=== PATIENT | male | born 1945 | race Caucasian/White ===

== ENCOUNTER 2024-11-22 11:08 | Outpatient (CLI) | payer MEDICARE, OTHER, SELFPAY ==
--- NOTE | 2024-11-22 13:13 | W.ANESCHARGE ---
Anesthesia Charges Start Date/Time Anesthesia Start Date: 11/22/24 Anesthesia Start Time: 11:55 Stop Date/Time Anesthesia Stop Date: 11/22/24 Anesthesia Stop Time: 13:15 Summary Extremes of Age - Over 70 or under 1: YARDER BOSS Coding CPT Codes CPT Codes: ANETarik LWR INTST SCR COLSC - 83740 ([id number]) P2 - PATIENT W/MILD SYST DISEASE, QX - YARDER BOSS SVC W/ MD MED DIRECTION, QK - CIVIL LABORATORY TECHNICIAN 2-4 CNCRNT ANES PROC Additional Codes: Summary - Extremes of Age - Over 70 or under 1: YARDER BOSS ([id number])
--- NOTE | 2024-11-22 13:20 | W.ANESCHARGE ---
Anesthesia Charges Start Date/Time Anesthesia Start Date: 11/22/24 Anesthesia Start Time: 11:55 Stop Date/Time Anesthesia Stop Date: 11/22/24 Anesthesia Stop Time: 13:15 Summary Extremes of Age - Over 70 or under 1: MDA Coding CPT Codes CPT Codes: ANES LWR INTST SCR COLSC - 85553 ([id number]) QK - BOLOGNA LACER 2-4 CNCRNT ANES PROC, P2 - PATIENT W/MILD SYST DISEASE, QX - TORNADO CHASER SVC W/ MD MED DIRECTION Additional Codes: Summary - Extremes of Age - Over 70 or under 1: MDA ([id number])
== END 2024-11-22 11:09 | disposition home or self-care (01) ==
LOC: OP CLINIC 11:10
PROVIDERS: PCP Nurse Practitioner Family; Visit Provider Surgery
DX: Z12.11 Encounter for screening for malignant neoplasm of colon (principal); Z86.0100 Personal history of colon polyps, unspecified
CPT/HCPCS: 00812; 45378; 99100; J2704

== ENCOUNTER 2024-11-24 10:58 | Outpatient (CLI) | payer MEDICARE, OTHER, SELFPAY ==
--- NOTE | 2024-11-24 11:15 | CRLHL7_ITS ---
For Patients: As a result of the Century Cures Act, medical imaging exams and procedure reports are released immediately into your electronic medical record. You may view this report before your referring provider. If you have questions, please contact your health care provider. Indication: Palpable lump Technique: Targeted grayscale and color Doppler ultrasound of the right lateral lower abdomen/back Comparison: None Findings: Heterogeneous slightly vascular solid mass in the right lateral lower flank subcutaneous tissues measuring 6.4 x 4.9 x 12.3 cm. A denser more heterogeneous area is noted within measuring 6.4 x 3.7 x 6.9 cm. Impression: Heterogeneous solid slightly vascular mass in the right lateral flank subcutaneous tissue measuring up to 12.3 cm is concerning for malignancy. Tissue sampling is recommended Dictated by Amelia Tello MD @ 11/25/2024 3:25:53 PM (Electronically Signed)
== END 2024-11-24 10:59 | disposition home or self-care (01) ==
PROVIDERS: PCP Nurse Practitioner Family; Visit Provider Nurse Practitioner Family
DX: R22.2 Localized swelling, mass and lump, trunk (principal)
CPT/HCPCS: 76705

== ENCOUNTER 2024-12-21 12:33 | Outpatient (CLI) | payer MEDICARE, OTHER, SELFPAY ==
--- NOTE | 2024-12-21 13:00 | CRLHL7_ITS ---
For Patients: As a result of the Century Cures Act, medical imaging exams and procedure reports are released immediately into your electronic medical record. You may view this report before your referring provider. If you have questions, please contact your health care provider. Indication: LOCALIZED SWELLING, MASS AND LUMP Technique: CT Abdomen/Pelvis W/ 126CC ISOVUE 370 intravenous Please note that all CT scans at this facility use dose modulation, iterative reconstruction, and/or weight-based dosing when appropriate to reduce radiation dose to as low as reasonably achievable. Comparison: Ultrasound 11/24/2024 Findings: There is a circumscribed primarily fat density mass within the right flank/right gluteal subcutaneous tissues, corresponding to the area of clinical concern. This measures approximately 5.4 x 9.4 x 4.9 cm in transverse, anterior-posterior and craniocaudad dimensions, respectively. There is a portion of this mass which has peripheral soft tissue density with associated dystrophic calcification. No fluid collection. No involvement of the underlying musculature. Calcified nodule within the right lung base, benign, measuring 7 millimeters. No hiatal hernia. Sub cm cyst within the posterior segment of the right hepatic lobe. Additional sub cm cyst within the dome of the liver. Spleen is normal. Adrenal glands are unremarkable. Simple cyst arises from the anterior right kidney measuring 1.6 cm. Pancreas is normal. Atherosclerotic changes. Normal gallbladder. No aneurism. Bladder normal. Unremarkable prostate. Appendix normal. No bowel obstruction or free air. No free fluid. No adenopathy. Degenerative changes both hips. Degenerative disc disease. No fracture or intrinsic osseous lesion. No abdominal wall hernia. Impression: Circumscribed somewhat mixed soft tissue mass within the right flank/right gluteal subcutaneous tissues measuring approximally 5.4 x 9.4 x 4.9 cm. No significant internal vascularity. 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 Please note that all CT scans at this facility use dose modulation, iterative reconstruction, and/or weight-based dosing when appropriate to reduce radiation dose to as low as reasonably achievable. Dictated by Emre Wolfe MD @ 12/21/2024 2:35:33 PM (Electronically Signed)
[2024-12-21 13:06] LABS: Estimated Glomerular Filt Rate 77 ml/min
== END 2024-12-21 12:34 | disposition home or self-care (01) ==
PROVIDERS: PCP Nurse Practitioner Family; Visit Provider Surgery
DX: R22.2 Localized swelling, mass and lump, trunk (principal)
CPT/HCPCS: 36415; 74177; 82565; Q9967

== ENCOUNTER 2025-01-19 06:07 | Day surgery (SDC) | payer MEDICARE, OTHER, SELFPAY ==
[2025-01-19 06:30] VITALS: BP 171/93; PULSE 66; RESP 16; TEMP 36.6; O2SAT 97; BMI 36.3
[2025-01-19] MEDS: LACTATED RINGERS 500 ML 500 ML 100 ML IV (06:30)
[2025-01-19] MEDS: SODIUM CHLORIDE 0.9 % (FLUSH) 10 ML SYRINGE IVF (06:33)
--- NOTE | 2025-01-19 07:29 | W.PM.H&PU ---
History & Physical Update History & Physical Update H&P Reviewed and patient assessed: No changes noted
[2025-01-19] MEDS: CEFAZOLIN 1 GM inj IVP (07:37)
[2025-01-19] MEDS: BUPIVACAINE 0.25% 30 ML 4 ML INJECTION (07:46)
[2025-01-19] MEDS: LIDOCAINE 1% MDV 4 ML INJECTION (07:46)
--- NOTE | 2025-01-19 07:47 | P.ANES_ITS ---
Anesthesia Charges Start Date/Time Anesthesia Start Date: 01/19/25 Anesthesia Start Time: 07:30 Stop Date/Time Anesthesia Stop Date: 01/19/25 Anesthesia Stop Time: 08:23 Summary Extremes of Age - Over 70 or under 1: MDA Coding CPT Codes CPT Codes: ANESTH SKIN EXT/PER/ATRUNK - 32768 ([id number]) QK - HEMATOLOGY NURSE EDUCATOR 2-4 CNCRNT ANES PROC, QX - FARMWORKER GENERAL SVC W/ MD MED DIRECTION, P2 - PATIENT W/MILD SYST DISEASE Additional Codes: Summary - Extremes of Age - Over 70 or under 1: MDA ([id number])
[2025-01-19 08:20] VITALS: BP 135/74; PULSE 53; RESP 16; TEMP 37.1; O2SAT 94
--- NOTE | 2025-01-19 08:22 | P.ANES_ITS ---
Anesthesia Charges Start Date/Time Anesthesia Start Date: 01/19/25 Anesthesia Start Time: 07:30 Stop Date/Time Anesthesia Stop Date: 01/19/25 Anesthesia Stop Time: 08:23 Coding CPT Codes CPT Codes: ANESTH SKIN EXT/PER/ATRUNK - 98311 ([id number]) P2 - PATIENT W/MILD SYST DISEASE, QK - CUSTOM DESIGNER 2-4 CNCRNT ANES PROC, QX - DENTAL CERAMIST ASSISTANT SVC W/ MD MED DIRECTION
--- NOTE | 2025-01-19 08:22 | W.ANESCHARGE ---
Anesthesia Charges Start Date/Time Anesthesia Start Date: 01/19/25 Anesthesia Start Time: 07:30 Stop Date/Time Anesthesia Stop Date: 01/19/25 Anesthesia Stop Time: 08:23 Coding CPT Codes CPT Codes: ANESTH SKIN EXT/PER/ATRUNK - 00463 ([id number]) P2 - PATIENT W/MILD SYST DISEASE, QK - MORTGAGE FUNDER 2-4 CNCRNT ANES PROC, QX - HASHER OPERATOR SVC W/ MD MED DIRECTION
[2025-01-19 08:30] VITALS: BP 129/82; PULSE 53; RESP 16; O2SAT 96
--- NOTE | 2025-01-19 08:36 | P.GSOP_ITS ---
Operative Note Date of procedure: 01/19/25 Pre-op diagnosis: Right flank mass Post-op diagnosis: Same Type of Procedure: Excision of right flank mass Indications: Patient is a 79-year-old male who presented to clinic with an enlarging mass on his right side. In workup was obtained with findings consistent with a benign lipoma. Given the patient's symptoms he was requesting removal. Risks and benefits of operative intervention were discussed at length with the patient. Risks included but was not limited to: Bleeding, infection, risk of damage to surrounding structures, possible need for additional procedures and postoperative complications such as pneumonia, pulmonary emboli or MD. All questions and concerns were addressed with the patient agreeing to proceed. Procedure Description: After discussing the risks and benefits of the procedure, the patient signed informed consent.? The operative site was marked and the patient was brought to the operating room and placed on the operating table on a beanbag in the lateral position with the right side up.? Care was taken to pad the patient's pressure points.?? The patient was then given sedation by anesthesia.?? The operative site was then prepped and draped in the usual sterile fashion.? A time-out was then performed. A mixture of Marcaine and lidocaine was used to anesthetize the surgical field. A transverse incision was made directly over the mass. Dissection was carried through subcutaneous tissue with electrocautery. The mass was well encapsulated and firm. It was circumferentially dissected free with blunt dissection and cautery. It was able to be removed in its entirety. The mass measured 11.5 cm x 7 cm x 4 cm. Hemostasis was assured with cautery. The cavity was irrigated with some warm saline. The incision measured 9 cm in size and was closed with interrupted 3 0 Vicryl and running 4-0 Monocryl subcuticular stitch. Steri- Strips were applied over top. Sterile dressings were then applied. ? The patient was then woken and transported to the recovery area in stable condition. ? The patient tolerated the procedure well. Findings: Right flank mass measuring 11.5 cm x 7 cm x 4 cm Anesthesia: MAC and local Surgeon: Siena Callaway MD Estimated blood loss (mL): 5 Additional Specimen Information: Right flank mass Condition: stable Disposition: PACU
[2025-01-19 08:45] VITALS: BP 137/73; PULSE 53; RESP 16; O2SAT 95
[2025-01-19 09:00] VITALS: BP 136/78; PULSE 53; RESP 16; O2SAT 92
[2025-01-19 09:15] VITALS: BP 143/79; PULSE 52; RESP 16; O2SAT 94
--- NOTE | 2025-01-19 09:21 | SUR.OPER ---
PATIENT QUESTIONS ANSWERED SATISFACTORILY PREOPERATIVELY. PATIENT BROUGHT TO OR #1 PER CART. Patient positioned supine on OR #1 bed. The perioperative team supported arms bilaterally on arm boards. Final approval of positioning by surgeon.
== END 2025-01-19 09:33 | disposition home or self-care (01) ==
PROVIDERS: PCP Nurse Practitioner Family; Visit Provider Surgery
PROC: (CPT 21931; principal; 2025-01-19 07:30)
DX: D17.1 Benign lipomatous neoplasm of skin and subcutaneous tissue of trunk (principal)
CPT/HCPCS: 21931; 00400; 88304; 99100; J2003; J0665; J0690; J1100; J2405; J2704; J3010; J7120